=== PATIENT | male | born 1960 | race Caucasian/White ===

== ENCOUNTER → 2021-10-17 15:43 | Outpatient (CLI) | payer OTHER, SELFPAY ==
--- NOTE | ~2021-10-17 | CT_ITS ---
CT lung screening DATE: 10/17/2021 16:02 INDICATION: Personal history of nicotine dependence TECHNIQUE: Noncontrast CT images through the chest. Automated exposure control and iterative reconstr uction were utilized. Exam dose: 193.44 mGy-cm total exam DLP. COMPARISON: 07/06/2017 CT lung screening examinations FINDINGS: Calcified right upper lobe pulmonary granuloma and calcified right paratracheal and hilar n odes, calcified splenic granulomas, consistent with old granulomatous disease. Mild emphysema. There is a new right upper lobe 8 x 13 mm nonsolid nodule since 07/06/2017. One year annual follow-up is recommended. Adenocarcinoma of the lung is not excluded. The [facility] radiology recommends one y ear follow-up in this setting due to the relatively indolent nature of such lesions and no significan t change in partially 100% long-term survival rate at 1 year follow-up. Normal heart size. Coronary artery calcification. No pericardial or pleural effusion. Normal caliber of the thoracic aorta. No hilar or mediastinal mass lesion or lymphadenopathy. Small sliding hiatal hernia. Fat-containing left foramen of Bochdalek hernia. Normal morphology of the adrenal glands. IMPRESSION: BI-RADS Category 2: Benign appearance or behavior; new 8 x 13 mm nonsolid nodule since . One-year LD CT lung follow-up is strongly recommended. Recommendation: [address] lung follow-up is strongly recommended due to presence of a new nonsolid 8 x 13 mm nodule in the right upper lobe Reviewed, dictated and finalized at [facility]. Reviewed, dictated and finalized at location [facility]. ING TRACER IMPRESSION: BI-RADS Category 2: Benign appearance or behavior; new 8 x 13 mm no nsolid nodule since 07/06/2017. One-year LD CT lung follow-up is strongly recom mended. Recommendation: [address] lung follow-up is strongly recommended due to pres ence of a new nonsolid 8 x 13 mm nodule in the right upper lobe
== END ==
PROVIDERS: PCP Family Medicine; Visit Provider Family Medicine
DX: Z87.891 Personal history of nicotine dependence (principal)
CPT/HCPCS: 71271

== ENCOUNTER 2022-10-19 06:48 | Outpatient (CLI) | payer OTHER, SELFPAY ==
--- NOTE | ~2022-10-19 | CT_ITS ---
EXAMINATION:CT lung screening DATE: 10/19/2022 07:38 INDICATION: Tobacco use. Smoker quit 2 years ago with 30 pack year history. TECHNIQUE: Computed tomography (CT) of the chest was performed without intravenous contrast. Automate d exposure control and iterative reconstruction technique were employed. The dose-length product (DLP ) was 196.02 mGy-cm. COMPARISON: Chest CT 10/17/2021 FINDINGS: There is mild emphysema. There is a small left posterior diaphragmatic hernia containing fa t. Calcified right lung nodules and calcified right hilar and mediastinal lymph nodes are consistent with old granulomatous disease. No pleural effusion. The heart size is normal. There are coronary art rox calcifications. No pericardial effusion. There is a moderate-sized sliding hiatal hernia. There i s diffuse hepatic steatosis. Calcifications in the spleen are consistent with old granulomatous disea se. There is an old healed left rib fracture. There is mild thoracic spondylosis. IMPRESSION: 1. Lung-RADS category 1: Negative. Continue annual screening with noncontrast low-dose chest CT in 12 months. Reviewed, dictated and finalized at location [facility]. RVISOR STRIPPING IMPRESSION: 1. Lung-RADS category 1: Negative. Continue annual screening with noncontrast l ow-dose chest CT in 12 months.
== END 2022-10-19 06:49 | disposition home or self-care (01) ==
PROVIDERS: PCP Family Medicine; Visit Provider Family Medicine
DX: Z12.2 Encounter for screening for malignant neoplasm of respiratory organs (principal); Z87.891 Personal history of nicotine dependence
CPT/HCPCS: 71271

== ENCOUNTER 2024-01-17 14:07 | Outpatient (CLI) | payer OTHER, SELFPAY ==
--- NOTE | ~2024-01-17 | XR_ITS ---
XR knee LT min 4V 01/17/2024 14:33 Indication: Left knee pain Procedure: 4 views left knee Comparison: 09/05/2016 Findings: There has been progression of tricompartment osteoarthritis, most severe in the medial comp artment. There is sclerotic lesion involving the medullary space of the distal aspect of the femur, c onsistent with osteonecrosis. No acute fracture or traumatic malalignment. No significant joint effus ion. There is atherosclerosis. Impression: 1: Progression of moderate-severe tricompartment osteoarthritis of the knee. 2: Probable osteonecrosis distal aspect of the femur. Reviewed, dictated and finalized at location [facility]. Impression: 1: Progression of moderate-severe tricompartment osteoarthritis of the knee. 2: Probable osteonecrosis distal aspect of the femur.
--- NOTE | ~2024-01-17 | CT_ITS ---
CT Scan of the Chest without Contrast: Clinical Indication: Lung cancer screening, nicotine dependence Technique: Contiguous sections were acquired throughout the chest without intravenous contrast. Dose reduction technique was used on this scan by utilizing automated exposure control and iterative recon struction technique. The dose-length product (DLP) was 152.40 mGy-cm. COMPARISON: 10/19/2022 Findings: There is no evidence of any significant mediastinal, hilar or axillary lymphadenopathy. Calcified pre carinal lymph nodes are present. Calcified right hilar lymph nodes are present. There are atheroscler otic calcifications of the aorta and coronary arteries. There is no evidence of pleural or pericardial effusion. Calcified right upper lobe granuloma present. Images through the upper abdomen reveal no abnormalities. Impression: Lung RADS 2: Benign appearance. 12 month follow-up screening CT advised. Reviewed, dictated and finalized at location . Impression: Lung RADS 2: Benign appearance. 12 month follow-up screening CT advised.
--- NOTE | ~2024-01-17 | XR_ITS ---
XR knee RT min 4V 01/17/2024 14:33 Indication: Right knee pain Procedure: 4 views right knee Comparison: No prior studies for comparison. Findings: There is tricompartment osteoarthritis with near complete loss of joint space in the medial compartment. Small joint effusion. Sclerotic lesion distal aspect of the femur at the metaphysis may represent enchondroma or osteonecrosis. No acute fracture or traumatic malalignment. Impression: 1: Tricompartment osteoarthritis, severe in the medial compartment. Reviewed, dictated and finalized at location [facility]. Impression: 1: Tricompartment osteoarthritis, severe in the medial compartment.
== END 2024-01-17 14:08 | disposition home or self-care (01) ==
LOC: ANHIMG 14:09
PROVIDERS: PCP Family Medicine; Visit Provider Family Medicine
DX: Z12.2 Encounter for screening for malignant neoplasm of respiratory organs (principal); Z87.891 Personal history of nicotine dependence; M17.0 Bilateral primary osteoarthritis of knee
CPT/HCPCS: 71271; 73564

== ENCOUNTER 2024-02-01 11:00 | Observation (INO) | payer OTHER, SELFPAY ==
[2024-02-01] VITALS (11 sets, daily range): BP systolic 147–236; BP diastolic 74–124; PULSE 86–113; RESP 16–20; TEMP 35.9–36.8; O2SAT 96–99
--- NOTE | ~2024-02-01 | CT_ITS ---
EXAMINATION: CT abdomen pelvis w con DATE: 02/01/2024 13:19 INDICATION: Vomiting blood TECHNIQUE: Computed tomography (CT) of the abdomen and pelvis was performed with 100 mL Omnipaque-350 intravenous contrast. Automated exposure control and iterative reconstruction technique were employe d. The dose-length product was 645.06 mGy-cm. COMPARISON: 12/13/18 FINDINGS: Lung bases are clear. Heart size is normal. No pericardial or pleural effusion. There is a small amou nt of fluid without evident soft tissue gas surrounding the distal esophagus and a small sliding-type hiatal hernia. There are also couple mildly prominent but still normal-sized likely reactive paraeso phageal lymph nodes. There is wall thickening at the distal esophagus as well as at the fundus of the stomach suggestive of focal gastritis and esophagitis. Diffuse hepatic steatosis. Gallbladder, panc reas, bilateral adrenal glands and kidneys are normal. Tiny splenic calcification consistent with old granulomatous disease. There are few scattered colonic diverticula without adjacent inflammatory str anding to suggest diverticulitis. Small bowel and appendix are normal. Bladder is normal. There are a couple chronic heterotopic ossicles in the deep right hemipelvis. No free intraperitoneal gas or flu id. No pathologically enlarged abdominal or pelvic lymphadenopathy. Mild lumbar levoscoliosis with se kandace spondylosis. IMPRESSION: 1. Small sliding-type hiatal hernia with wall thickening of the proximal stomach and distal esophagus suspicious for gastritis and distal esophagitis most likely related to peptic ulcer disease and refl ux. The small amount of mucus. Fluid surrounding the distal esophagus and hiatal hernia is likely micha ctive. Could not exclude a perforation however there is no evident extraluminal gas to more specifica lly suggest this. Differential for the wall thickening would also include malignancy and would recomm end follow-up endoscopy for further evaluation. Reviewed, dictated and finalized at location B. IMPRESSION: 1. Small sliding-type hiatal hernia with wall thickening of the proximal stomac h and distal esophagus suspicious for gastritis and distal esophagitis most lik melisa related to peptic ulcer disease and reflux. The small amount of mucus. Flui d surrounding the distal esophagus and hiatal hernia is likely reactive. Could not exclude a perforation however there is no evident extraluminal gas to more specifically suggest this. Differential for the wall thickening would also incl ude malignancy and would recommend follow-up endoscopy for further evaluation.
--- NOTE | ~2024-02-01 | XR_ITS ---
EXAMINATION: XR abdomen gastric tube insert DATE: 02/01/2024 14:33 INDICATION: Nasogastric tube placement. TECHNIQUE: An upright view of the abdomen was obtained. COMPARISON: CT abdomen and pelvis 02/01/2024 FINDINGS: The lower abdomen is excluded. There are no dilated loops of bowel. The nasogastric tube ti p is in the stomach. IMPRESSION: 1. Nasogastric tube tip in the stomach. Reviewed, dictated and finalized at location A.
--- NOTE | ~2024-02-01 | XR_ITS ---
EXAMINATION: XR chest 1V portable DATE: 02/01/2024 13:24 INDICATION: Cough. Hematemesis. TECHNIQUE: A single frontal view of the chest was obtained. COMPARISON: Chest 2 views 03/03/2010, CT abdomen and pelvis 02/01/2024 FINDINGS: A calcified right lung nodule and calcified right hilar and mediastinal lymph nodes are con sistent with old granulomatous disease. No pleural effusion or pneumothorax. The heart size is normal . IMPRESSION: 1. No acute cardiopulmonary disease. Reviewed, dictated and finalized at location A.
[2024-02-01 11:19] LABS: Basophils Percent Auto 0.4 % (0.2-1.2); Eosinophils Absolute Auto 0.1 K/mm3 (0-0.3); Eosinophils Percent Auto 1.6 % (0-4.4); Hematocrit 48.7 % (42.0-52.0); Hemoglobin 16.7 g/dL (14.0-18.0); Immature Granulocyte Absolute 0.04 K/mm3 (0.00-0.031); Immature Granulocyte Percent A 0.5 % (0-0.5); Lymphocytes Absolute Auto 1.41 K/mm3 (0.9-3.2); Mean Corpuscular HGB Conc 34.3 g/dl (32-36); Mean Corpuscular Hemoglobin 33.1 pg (26-34); Mean Corpuscular Volume 96.6 fl (80-100); Mean Platelet Volume 9.6 fl (7.4-10.4); Monocytes Absolute Auto 0.5 K/mm3 (0.1-0.6); Neutrophils Absolute Auto 5.3 K/mm3 (1.3-6.7); Neutrophils Percent Auto 71.5 % (45.5-73.1); Platelet Count Result 224 k/mm3 (150-375); Red Blood Count 5.04 M/mm3 (4.6-6.20); White Blood Count 7.4 K/mm3 (4.5-10.0)
[2024-02-01 11:26] LABS: Alanine Aminotransferase 65 U/L (6-50); Albumin Level 4.5 g/dL (3.5-5.1); Alkaline Phosphatase 91 U/L (38-126); Anion Gap 10 mmol/L (4-12); Aspartate Amino Transferase 100 U/L (17-59); Bilirubin,Total 1.4 mg/dL (0.2-1.3); Blood Urea Nitrogen 9 mg/dL (9-20); Calcium 9.2 mg/dL (8.4-10.2); Carbon Dioxide 23 mmol/L (22-30); Chloride 105 mmol/L (98-107); Estimated CRCL calculation 62 ml/min; Estimated Glomerular Filt Rate > 60; Glucose 198 mg/dL (65-110); Potassium 3.6 mmol/L (3.4-5.0); Sodium 138 mmol/L (137-145)
[2024-02-01 11:27] LABS: Partial Thromboplastin Time 28.5 Seconds (22.3-36.8)
--- NOTE | 2024-02-01 12:31 | PC.NURSE ---
Pt states has a history of some issues with alcohol in the past and has had some issues with increased stress with jail.
[2024-02-01] MEDS: SODIUM CHLORIDE 0.9% IV 1,000 ML 999 ML IV CONT (12:53)
[2024-02-01] MEDS: ONDANSETRON INJ 4 MG/2 ML VIAL IV PUSH (12:54)
[2024-02-01] MEDS: PANTOPRAZOLE SODIUM IV 40 MG VIAL 80 MG IV PUSH (12:54)
--- NOTE | 2024-02-01 14:30 | PC.NURSE ---
NG tube placed, removed roughly 15mls of clear fluid/mucus with pink tinge present.
--- NOTE | 2024-02-01 14:31 | ED.GENADULT ---
HPI - General Adult General Chief complaint: GI Bleed Stated complaint: vomiting blood Time Seen by Provider: 02/01/24 12:36 patient is 63-year-old gentleman who presents emergency department chief complaint of vomiting blood. Patient reports that he had some epigastric discomfort and has had 2 episodes of vomiting. The patient states the vomitus was a dark colored blood the patient reports no blood in his stool reports he is not on blood thinners reports no prior history of GI bleeding in the past Related Data Allergies Allergy/AdvReac Type Severity Reaction Status Date / Time No Known Allergies Allergy Verified 09/28/23 08:44 Review of Systems Review of Systems: A 10 system review of systems was completed on the patient and is negative except for what is stated in the HPI. Nursing and ancillary documentation was reviewed. [facility] Past Medical History Medical History (Updated 02/01/24 @ 21:30 by Kurtis Barragan MD) Alcohol induced acute pancreatitis Benign essential hypertension Chronic obstructive pulmonary disease Continuous chronic alcoholism Erectile dysfunction Hyperlipidemia Peptic ulcer Prediabetes Surgical History Surgical History (Updated 02/01/24 @ 14:52 by Marya Brizuela PA-C) History of colonoscopy with polypectomy (06/2013) Benign polyp, internal hemorrhoids, diverticulosis. Family History Family History Mother Patient's mother is in good health Father Family history of respiratory disorder, Onset Age: 67 Patient's father is , Onset Age: 67 Social History Social History (Updated 02/01/24 @ 14:57 by Marya Brizuela PA-C) Social History: Surrogate medical decision maker: Code status: Full code. Smoking packs per day: 1 Smoking cigarettes per day: 20.0 Smoking status: Former smoker Tobacco type: cigarettes Second hand tobacco smoke exposure: Yes Smoking end date: 09/20/15 Alcohol intake: current Substance use: never Substance use type: does not use Do You Feel Safe in your Home?: Yes Lack of Transportation: No Lack of Food: Never True Current Housing: I Have Housing Concerned About Future Housing: YES Difficulty Paying Gas/Electric Bills: No Difficulty Paying for Meds: No Currently Unemployed: No Education: Trade/Vocational Certificate Difficulty w/ Childcare or Family Care: No Living arrangements: alone Occupation/Education: retired Spiritual care concerns: No Agree to blood products: Yes Exam Narrative: GENERAL: Well-appearing, well-nourished, and in no acute distress. HEAD: Normocephalic, atraumatic. EYES: PERRLA and EOMI. ENT: Nares clear, no rhinorrhea or epistaxis. Mucous membranes moist. NECK: Supple. CHEST: Clear to auscultation. No respiratory distress. HEART: Regular rate and rhythm. No murmur heard. Normal peripheral pulses. ABDOMEN: Soft, mild tenderness to palpation in the epigastric region, nondistended, normal active bowel sounds. : Guaiac-negative stool EXTREMITIES: Normal range of motion. No edema. SKIN: Warm, dry, no rash. NEURO: No focal deficits. Alert and oriented x3. PSYCH: Normal mood and affect. Course Vital Signs Vital signs: Vital Signs Temperature 36.7 C 02/01/24 11:03 Pulse Rate 112 H 02/01/24 11:03 Respiratory Rate 20 02/01/24 11:03 Blood Pressure 226/124 H 02/01/24 11:03 Pulse Oximetry 99 02/01/24 11:03 Oxygen Delivery Room Air 02/01/24 11:03 Temperature 36.8 C 02/01/24 20:17 Pulse Rate 113 H 02/01/24 20:17 Respiratory Rate 18 02/01/24 20:17 Blood Pressure 179/93 H 02/01/24 20:17 Pulse Oximetry 98 02/01/24 20:17 Oxygen Delivery Room Air 02/01/24 11:03 Medical Decision Making [facility] Narrative Medical decision making narrative: differential diagnosis includes upper GI bleed, lower GI bleed, gastritis, patient given 80 mg of IV
--- NOTE | 2024-02-01 14:50 | PM.IMHP ---
H&P: HPI History of Present Illness Date/Time: 02/01/24 16:00 Chief Complaint: Abdominal pain and vomiting blood. Narrative: This is a pleasant 63-year-old male with history of gastroesophageal reflux disease, peptic ulcer, daily alcohol use, pancreatitis, hepatic steatosis, hypertension, and dyslipidemia who presented to the emergency department via private vehicle from home for evaluation of abdominal pain and vomiting blood. The patient provides the following history. The last several weeks he has noticed an increase in GERD symptoms and this morning not long after he got up he developed a significant burning pain in the epigastric region radiating into the chest associated with nausea. He had 2 episodes of dark bloody emesis thereafter. He has had no further episodes of emesis since arrival to the hospital any reports feeling a bit better at this time. He takes equate Arthritis daily but he is unclear if it is ibuprofen or acetaminophen. He takes [place] occasionally for his GERD symptoms. He drinks 1 cup of coffee and 1 soda a day. He has a couple of cocktails most nights with his last drink being on Wednesday. He denies signs and symptoms of alcohol withdrawal. He has not had any recent change in stressors. Weight has remained stable. He also denies syncope, near syncope, chest pain, pleuritic pain, shortness of breath, melena, and hematochezia. In the ED: Blood pressure has been as high as 226/124. He is tachycardic in the upper 90s to low 100s. Labs were significant for a hemoglobin of 16.7, hematocrit 48.7%, INR 1.0, sodium 138, potassium 3.6, BUN 9, creatinine 1.10, glucose 198, total bili 4, AST 100, ALT 65, alkaline phosphatase 91, total protein 8.0, albumin 4.5. CT of the abdomen and pelvis showed small sliding type hiatal hernia with findings suspicious for gastritis and esophagitis. He was given 80 mg IV pantoprazole, 4 mg ondansetron, and 10 mg hydralazine and he is being admitted in this setting for close monitoring and GI consultation. Review of Systems Review of Systems: 12 systems were reviewed and are negative except for as per HPI. [facility] Past Medical History Medical History (Updated 02/01/24 @ 23:04 by Marya Brizuela PA-C) Alcohol induced acute pancreatitis Benign essential hypertension Chronic obstructive pulmonary disease Daily consumption of alcohol Erectile dysfunction Hyperlipidemia Peptic ulcer Prediabetes Surgical History Surgical History History of colonoscopy with polypectomy (06/2013) Benign polyp, internal hemorrhoids, diverticulosis. Family History Family History Mother Patient's mother is in good health Father Family history of respiratory disorder, Onset Age: 67 Patient's father is , Onset Age: 67 Social History Social History (Updated 02/01/24 @ 23:03 by Marya Brizuela PA-C) Social History: Surrogate medical decision maker: Yaakov Leblanc, son. Code status: Full code. Smoking packs per day: 1 Smoking cigarettes per day: 20.0 Smoking status: Former smoker Tobacco type: cigarettes Second hand tobacco smoke exposure: Yes Smoking end date: 09/20/15 Alcohol intake: current Alcohol use details: Drinks a couple of cocktails most days of the week. Substance use: never Substance use type: does not use Do You Feel Safe in your Home?: Yes Lack of Transportation: No Lack of Food: Never True Current Housing: I Have Housing Concerned About Future Housing: YES Difficulty Paying Gas/Electric Bills: No Difficulty Paying for Meds: No Currently Unemployed: No Education: Trade/Vocational Certificate Difficulty w/ Childcare or Family Care: No Living arrangements: alone Occupation/Education: retired Spiritual care concerns: No Agree to blood products: Yes Meds Home Medications and Allergies Home M
[2024-02-01] MEDS: hydrALAZINE HCL 20 MG/ML VIAL 10 MG IV PUSH (15:21)
[2024-02-01] MEDS: SODIUM CHLORIDE 0.9% IV 1,000 ML 125 ML IV CONT ×2 (15:43→21:49)
[2024-02-01 15:45] LABS: Hematocrit 43.6 % (42.0-52.0); Hemoglobin 14.9 g/dL (14.0-18.0)
[2024-02-01 21:16] LABS: Hematocrit 41.3 % (42.0-52.0); Hemoglobin 13.9 g/dL (14.0-18.0)
[2024-02-01] MEDS: ACETAMINOPHEN 325 MG TABLET 650 MG PO (21:50)
[2024-02-01] MEDS: PANTOPRAZOLE SODIUM IV 40 MG VIAL IV PUSH (21:50)
[2024-02-01] MEDS: LORazepam INJ (*CRX) 2 MG/ML VIAL 0.5 MG IV PUSH (21:51)
[2024-02-01 22:34] LABS: Hemoglobin A1C 5.6 % (<5.7)
[2024-02-02] VITALS (16 sets, daily range): BP systolic 133–180; BP diastolic 74–90; PULSE 68–88; RESP 18–28; TEMP 36.2–36.7; O2SAT 97–100
[2024-02-02] MEDS: THIAMINE HCL 200 MG/2 ML VIAL 100 MG IV PUSH (00:03)
[2024-02-02 04:20] LABS: Hematocrit 37.2 % (42.0-52.0); Hemoglobin 12.6 g/dL (14.0-18.0); Mean Corpuscular HGB Conc 33.9 g/dl (32-36); Mean Corpuscular Volume 97.4 fl (80-100); Platelet Count Result 164 k/mm3 (150-375); Red Blood Count 3.82 M/mm3 (4.6-6.20); Red Cell Distribution Width 13.1 % (11.5-14.5); White Blood Count 7.8 K/mm3 (4.5-10.0)
[2024-02-02 04:33] LABS: Alanine Aminotransferase 50 U/L (6-50); Albumin Level 3.3 g/dL (3.5-5.1); Alkaline Phosphatase 54 U/L (38-126); Anion Gap 7 mmol/L (4-12); Aspartate Amino Transferase 76 U/L (17-59); Bilirubin,Total 1.2 mg/dL (0.2-1.3); Blood Urea Nitrogen 10 mg/dL (9-20); Calcium 8.1 mg/dL (8.4-10.2); Carbon Dioxide 21 mmol/L (22-30); Chloride 109 mmol/L (98-107); Estimated CRCL calculation 83 ml/min; Estimated Glomerular Filt Rate > 60; Glucose 99 mg/dL (65-110); Magnesium 1.6 mg/dL (1.6-2.3); Potassium 3.4 mmol/L (3.4-5.0); Sodium 137 mmol/L (137-145)
[2024-02-02 07:32] LABS: Hematocrit 38.4 % (42.0-52.0)
[2024-02-02] MEDS: METOPROLOL SUCCINATE EXT REL 100 MG TABCR PO (08:32)
[2024-02-02] MEDS: PANTOPRAZOLE SODIUM IV 40 MG VIAL IV PUSH (08:33)
[2024-02-02] MEDS: SODIUM CHLORIDE 0.9% IV 1,000 ML 100 ML IV CONT (08:33)
[2024-02-02] MEDS: lisinopriL 10 MG TABLET PO (08:33)
[2024-02-02] MEDS: LACTATED RINGERS 1,000 ML 150 ML IV CONT (10:26)
--- NOTE | 2024-02-02 10:49 | WPDANESEPPF ---
Anes - Initial Pre Proc Eval Procedure: Operation Date: 02/02/24 14:00 Proposed Procedures p Esophagogastroduodenoscopy - Khurram Ramsey MD Date/Time: 02/02/24 10:49 Surgeon: Melissa David MD Pre Op Diagnosis: epigastric pain,gastritis Patient Data Age: 63 Gender: M Height: 1.75 m Weight: 90.1 kg Last Vital Signs Temp 97.2 F L 02/02/24 10:24 Pulse 75 02/02/24 10:24 Resp 18 02/02/24 10:24 BP 167/86 H 02/02/24 10:24 Pulse Ox 99 02/02/24 10:24 O2 Del Method Room Air 02/02/24 10:24 Allergies Allergy/AdvReac Type Severity Reaction Status Date / Time No Known Allergies Allergy Verified 09/28/23 08:44 Home Medications Medication Instructions Recorded Confirmed Type sildenafil 100 mg tablet 100 mg PO DAILY PRN sexual 07/10/21 02/01/24 Rx activity #6 tabs atorvastatin 10 mg tablet 10 mg PO DAILY #90 tabs 09/28/23 02/01/24 Rx fenofibrate micronized 200 mg 200 mg PO DAILY #90 caps 09/28/23 02/01/24 Rx capsule lisinopril 10 mg tablet 10 mg PO DAILY #90 tabs 09/28/23 02/01/24 Rx metoprolol succinate 100 mg 100 mg PO DAILY #90 tabs 09/28/23 02/01/24 Rx tablet,extended release 24 hr Laboratory Tests 02/01/24 02/01/24 02/01/24 11:10 15:35 21:07 WBC 7.4 K/mm3 (4.5-10.0) RBC 5.04 M/mm3 (4.6-6.20) Hgb 16.7 g/dL 14.9 g/dL 13.9 L g/dL (14.0-18.0) (14.0-18.0) (14.0-18.0) Hct 48.7 % 43.6 % 41.3 L % (42.0-52.0) (42.0-52.0) (42.0-52.0) MCV 96.6 fl (80-100) MCH 33.1 pg (26-34) MCHC 34.3 g/dl (32-36) RDW 13.0 % (11.5-14.5) Plt Count 224 k/mm3 (150-375) MPV 9.6 fl (7.4-10.4) Immature Gran % (Auto) 0.5 % (0-0.5) Neut % (Auto) 71.5 % (45.5-73.1) Lymph % (Auto) 19.0 % (18.3-44.2) [place] % (Auto) 7.0 % (2.6-8.5) Eos % (Auto) 1.6 % (0-4.4) Baso % (Auto) 0.4 % (0.2-1.2) Lymph # (Auto) 1.41 K/mm3 (0.9-3.2) [place] # (Auto) 0.5 K/mm3 (0.1-0.6) Eos # (Auto) 0.1 K/mm3 (0-0.3) Baso # (Auto) 0.0 K/mm3 (0.0-0.1) Abs Immat Gran (auto) 0.04 H K/mm3 (0.00-0.031) Absolute Neuts (auto) 5.3 K/mm3 (1.3-6.7) Absolute Nucleated RBC 0.000 K/mm3 (0.0-0.012) Nucleated RBC % 0.0 % (0.0-0.2) PT 14.0 Seconds (11.1-14.7) INR 1.0 APTT 28.5 Seconds (22.3-36.8) Sodium 138 mmol/L (137-145) Potassium 3.6 mmol/L (3.4-5.0) Chloride 105 mmol/L (98-107) Carbon Dioxide 23 mmol/L (22-30) Anion Gap 10 mmol/L (4-12) BUN 9 mg/dL (9-20) Creatinine 1.10 mg/dL (0.7-1.3) Estim Creat Clear Calc 62 ml/min Estimated GFR > 60 (59 - ) Glucose 198 H mg/dL (65-110) Hemoglobin A1c 5.6 % (<5.7) Calcium 9.2 mg/dL (8.4-10.2) Magnesium Total Bilirubin 1.4 H mg/dL (0.2-1.3) AST 100 H U/L (17-59) ALT 65 H U/L (6-50) Alkaline Phosphatase 91 U/L (38-126) Total Protein 8.0 g/dL (6.3-8.2) Albumin 4.5 g/dL (3.5-5.1) Blood Type O Positive Antibody Screen Negative 02/02/24 02/02/24 03:39 07:27 WBC 7.8 K/mm3 (4.5-10.0) RBC 3.82 L M/mm3 (4.6-6.20) Hgb 12.6 L g/dL 13.0 L g/dL (14.0-18.0) (14.0-18.0) Hct 37.2 L % 38.4 L % (42.0-52.0) (42.0-52.0) MCV 97.4 fl (80-100) MCH 33.0 pg (26-34) MCHC 33.9 g/dl (32-36) RDW 13.1 % (11.5-14.5) Plt Count 164 k/mm3 (150-375) MPV 10.0 fl (7.4-10.4) Immature Gran % (Auto) Neut % (Auto) Lymph % (Auto) [place] % (Auto) Eos % (Auto) Baso % (Auto) Lymph # (Auto) [place] # (Auto) Eos
--- NOTE | 2024-02-02 11:11 | WPDGICN ---
Assessment and Plan Assessment and plan (1) Hematemesis: Code(s): K92.0 - Hematemesis Status: Acute Assessment and Plan: started on iv protonix will proceed with urgent EGD, probably esophagitis/ulcers, less likely varices but he also drinks alcohol (2) Epigastric pain: Code(s): R10.13 - Epigastric pain Status: Acute Assessment and Plan: probably PUD also nsaid's use (3) Abnormal CT of the abdomen: Code(s): R93.5 - Abnormal findings on diagnostic imaging of other abdominal regions, including retroperitoneum Status: Acute Assessment and Plan: esophagitis egd to assess (4) Alcohol dependence, continuous: Code(s): F10.20 - Alcohol dependence, uncomplicated Status: Acute Assessment and Plan: here also with elevated liver enzymes, probably from alcohol use monitor ciwa protocol, thiamine (5) Transaminitis: Code(s): R74.01 - Elevation of levels of liver transaminase levels Status: Acute (6) Hypertensive urgency: Code(s): I16.0 - Hypertensive urgency Status: Acute Assessment and Plan: on meds (7) NSAID long-term use: Code(s): 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 is a 63 year old male with history of gastroesophageal reflux disease, daily alcohol use (couple of cocktails most nights), pancreatitis, hepatic steatosis, hypertension, and dyslipidemia who presented to the emergency department her for new onset of abdominal pain and vomiting blood. Last few weeks with more GERD symptoms, day of admission with significant burning pain in the epigastric region radiating into the chest associated with nausea then followed by coffee ground emesis x2. He takes OTC Arthritis pain meds, Yaneli-Dennis occasionally for his GERD symptoms. ER with hemoglobin of 16.7 after fluids down to 13, INR 1.0, sodium 138, potassium 3.6, BUN 9, creatinine 1.10, glucose 198, total bili 1.4, AST 100, ALT 65, alkaline phosphatase 91, albumin 4.5. CT of the abdomen and pelvis showed small sliding type hiatal hernia with findings suspicious for gastritis and esophagitis. Given iv protonix, ciwa protocol and admitted to hospital. Review of Systems Constitutional: Constitutional: Denies headache(s) Eyes: Eyes: Denies blurry vision ENT: Reports Normal hearing present Cardiovascular: Cardiovascular: Denies chest pain and Denies dyspnea Respiratory: Respiratory: Denies dyspnea Gastrointestinal: Gastrointestinal: Reports abdominal pain and Reports hematemesis Genitourinary: Genitourinary: Denies dysuria Musculoskeletal: Musculoskeletal: Reports arthralgias Integumentary/Breasts: Skin/Breast: Denies dry skin Neurologic: Reports Normal hearing present and Denies headache(s) Psychiatric: Psychiatric: Denies behavioral changes Allergic/Immunologic: Allergic/Immunologic: Denies urticaria PMFSH Past Medical History Medical History (Updated 02/02/24 @ 12:46 by Khurram Ramsey MD) Alcohol induced acute pancreatitis Benign essential hypertension Chronic obstructive pulmonary disease Daily consumption of alcohol Erectile dysfunction Hyperlipidemia NSAID long-term use Peptic ulcer Prediabetes Surgical History Surgical History History of colonoscopy with polypectomy (06/2013) Benign polyp, internal hemorrhoids, diverticulosis. Family History Family History Mother Patient's mother is in good health Father Family history of respiratory disorder, Onset Age: 67 Patient's father is , Onset Age: 67 Social History Social History (Updated 02/01/24 @ 23:03 by Marya Brizuela PA-C) Social Hi
--- NOTE | 2024-02-02 16:49 | PM.DS ---
DS: Admitting Diagnosis Discharge Date 02/02/2024 Admitting Diagnosis Abdominal pain and vomiting blood. DS: Discharge Diagnosis Discharge Diagnosis (1) Hematemesis: Code(s): K92.0 - Hematemesis Status: Acute (2) Transaminitis: Code(s): R74.01 - Elevation of levels of liver transaminase levels Status: Acute Assessment and Plan: watching in hospital (3) Abnormal CT of the abdomen: Code(s): R93.5 - Abnormal findings on diagnostic imaging of other abdominal regions, including retroperitoneum Status: Acute Assessment and Plan: Suspect underlying esophagitis and gastritis with the possibility of peptic ulcers well. CT scan shows some fluid surrounding the distal esophagus and hilar hernia which is likely reactive however radiologist could not exclude a perforation though no evident extraluminal gas noted and this seems unlikely by history and exam findings. Egd showed gastritis. Pt tolerating diet prior to DC. Pt to have no alcohol no NSAIDS rpt EGD in 4 weeks Pt to take calfrate and protonix meanwhile Ok to DC (4) Daily consumption of alcohol: Code(s): Z78.9 - Other specified health status Status: Acute Assessment and Plan: abstinence adviced (5) Hypertensive urgency: Code(s): I16.0 - Hypertensive urgency Status: Acute Assessment and Plan: controlled now (6) Prediabetes: Code(s): R73.03 - Prediabetes Status: Acute Assessment and Plan: cut back on sugars foods (7) Hyperlipidemia: Qualifiers: Hyperlipidemia type: mixed hyperlipidemia Qualified Code(s): E78.2 - Mixed hyperlipidemia Code(s): E78.5 - Hyperlipidemia, unspecified Status: Acute Assessment and Plan: continue with statin DS: Summary Hospital Course Hospital Course: The patient presented to the emergency department for evaluation of epigastric discomfort and bloody emesis x2, Suspect underlying esophagitis and gastritis with the possibility of peptic ulcers well. CT scan shows some fluid surrounding the distal esophagus and hilar hernia which is likely reactive however radiologist could not exclude a perforation though no evident extraluminal gas noted and this seems unlikely by history and exam findings. Egd showed gastritis. Pt to have no alcohol no NSAIDS rpt EGD in 4 weeks Pt to take calfrate and protonix meanwhile ok to DC Time Spent with Patient Time attestation: Total time spent providing and/or coordinating discharge services:40 minutes on day of DC Exam Narrative: General: Well-developed, nontoxic-appearing male Respiratory: Lungs are clear to auscultation bilaterally. Cardiovascular: Regular rate and rhythm with S1-S2. Gastrointestinal: Abdomen is soft, nontender, and nondistended with positive bowel sounds. Skin: Warm and dry. No rash or lesions on limited exam. Extremities: No cyanosis, clubbing, or edema. Radial and pedal pulses intact. Neurological: Alert. Cranial nerves 2-12 are grossly intact. No gross focal deficits to casual conversation. Psychiatric: Pleasant and cooperative with normal mood and affect. Judgment and insight intact. DS: Data Data Completed and Pending Pending studies at discharge: Pending at discharge 02/02/24 11:19 Surgical [PTH] Routine Labs on day of discharge: Labs from last 24 hours 02/02/24 02/02/24 02/01/24 07:27 03:39 21:07 WBC 7.8 RBC 3.82 L Hgb 13.0 L 12.6 L 13.9 L Hct 38.4 L 37.2 L 41.3 L MCV 97.4 MCH 33.0 MCHC 33.9 RDW 13.1 Plt Count 164 MPV 10.0 Sodium 137 Potassium 3.4 Chloride 109 H Carbon Dioxide 21 L Anion Gap 7 BUN 10 Creatinine 0.80 Estim Creat Clear Calc 83 Estimated GFR > 60 Glucose 99 Hemoglobin A1c 5.6 Calcium 8.1 L Magnesium 1.6 Total Bilirubin 1.2 AST 76 H ALT 50 Alkaline Phosphatase 54 Total Protein 6.0 L A
== END 2024-02-02 17:34 | disposition home or self-care (01) ==
LOC: ANHED 13:54 → ANHIMU 17:53
PROVIDERS: Emergency Medicine; Internal Medicine Gastroenterology; Physician Assistant; Admitting Provider General Practice; Emergency Provider Emergency Medicine; PCP Family Medicine; Visit Provider Family Medicine
PROC: 0DJ08ZZ Inspection of Upper Intestinal Tract, Via Natural or Artificial Opening Endoscopic (ICD-10-PCS; CPT 43235; principal; 2024-02-02 14:00)
DX: K22.10 Ulcer of esophagus without bleeding (principal); K44.9 Diaphragmatic hernia without obstruction or gangrene; K29.70 Gastritis, unspecified, without bleeding; K21.00 Gastro-esophageal reflux disease with esophagitis, without bleeding; I16.0 Hypertensive urgency; R74.01 Elevation of levels of liver transaminase levels; R93.5 Abnormal findings on diagnostic imaging of other abdominal regions, including retroperitoneum; E78.2 Mixed hyperlipidemia; I10 Essential (primary) hypertension; J44.9 Chronic obstructive pulmonary disease, unspecified; F10.20 Alcohol dependence, uncomplicated; R73.03 Prediabetes; K21.9 Gastro-esophageal reflux disease without esophagitis; K76.0 Fatty (change of) liver, not elsewhere classified; Z87.11 Personal history of peptic ulcer disease; Z87.891 Personal history of nicotine dependence; Z79.1 Long term (current) use of non-steroidal anti-inflammatories (NSAID)
CPT/HCPCS: 43239; 36415; 71045; 74177; 80053; 83036; 83735; 85014; 85018; 85025; 85027; 85610; 85730; 86850; 86900; 86901; 88305; 88312; 96361; 96374; 96375; 96376; 99285; A9270; C9113; G0378; J0360; J2060; J2405; J2704; J3411; J7030; J7120; Q9967

== ENCOUNTER 2024-05-24 01:49 | Day surgery (SDC) | payer OTHER, SELFPAY ==
[2024-05-03 14:23] VITALS: BMI 28.5
[2024-05-24 10:02] VITALS: BP 152/61; PULSE 58; RESP 20; TEMP 36.1; O2SAT 100
[2024-05-24] MEDS: LACTATED RINGERS 1,000 ML 150 ML IV CONT (10:10)
--- NOTE | 2024-05-24 10:24 | WPDANESEPPF ---
Anes - Initial Pre Proc Eval Procedure: Operation Date: 05/24/24 11:00 Proposed Procedures p Esophagogastroduodenoscopy - Khurram Ramsey MD Date/Time: 05/24/24 10:24 Surgeon: Khurram Ramsey MD Pre Op Diagnosis: GERD, Gastritis,Diaphragmatic hernia,reflux Patient Data Age: 63 Gender: M Height: 1.8 m Weight: 92.5 kg Last Vital Signs Temp 97 F L 05/24/24 10:02 Pulse 58 L 05/24/24 10:02 Resp 20 05/24/24 10:02 BP 152/61 H 05/24/24 10:02 Pulse Ox 100 05/24/24 10:02 O2 Del Method Room Air 05/24/24 10:02 Allergies Allergy/AdvReac Type Severity Reaction Status Date / Time No Known Allergies Allergy Verified 05/24/24 10:00 Home Medications Medication Instructions Recorded Confirmed Type sildenafil 100 mg tablet 100 mg PO DAILY PRN sexual 07/10/21 05/03/24 Rx activity #6 tabs atorvastatin 10 mg tablet 10 mg PO DAILY #90 tabs 09/28/23 05/03/24 Rx fenofibrate micronized 200 mg 200 mg PO DAILY #90 caps 09/28/23 05/03/24 Rx capsule lisinopril 10 mg tablet 10 mg PO DAILY #90 tabs 09/28/23 05/03/24 Rx metoprolol succinate 100 mg 100 mg PO DAILY #90 tabs 09/28/23 05/03/24 Rx tablet,extended release 24 hr Patient hx anesthesia problems: none Family hx anesthesia problems: none Results Review: All pre-operative results and documents have been reviewed as part of the pre-operative evaluation. [facility] Past Medical History Medical History Alcohol induced acute pancreatitis Benign essential hypertension Chronic obstructive pulmonary disease Daily consumption of alcohol Erectile dysfunction Hyperlipidemia NSAID long-term use Peptic ulcer Prediabetes Surgical History Surgical History History of colonoscopy with polypectomy (06/2013) Benign polyp, internal hemorrhoids, diverticulosis. Family History Family History Mother Patient's mother is in good health Father Family history of respiratory disorder, Onset Age: 67 Patient's father is , Onset Age: 67 Social History Social History Social History: Surrogate medical decision maker: Yaakov Leblanc, [employer]. Code status: Full code. Smoking packs per day: 1 Smoking cigarettes per day: 20.0 Smoking status: Former smoker Tobacco type: cigarettes Second hand tobacco smoke exposure: Yes Smoking end date: 09/20/15 Alcohol intake: current Drinks per week: 7 Alcohol use details: Drinks a couple of cocktails most days of the week. Substance use: never Substance use type: marijuana Other substance usage details: once a month Do You Feel Safe in your Home?: Yes Lack of Transportation: No Lack of Food: Never True Current Housing: I Have Housing Concerned About Future Housing: YES Difficulty Paying Gas/Electric Bills: No Difficulty Paying for Meds: No Currently Unemployed: No Education: Trade/Vocational Certificate Difficulty w/ Childcare or Family Care: No Living arrangements: alone Occupation/Education: retired Spiritual care concerns: No Agree to blood products: Yes Anes - Eval Final PreProcedure Day of Procedure 05/24/24 10:24 Patient weight: obese Heart: regular rate and rhythm Lungs: clear to auscultation Airway: Mallampati scale class II Neurological: alert and oriented Last oral intake: >/= 8 hours ASA classification: III Emergent: no Anesthetic plan: proceed Anesthesia type and monitoring: general GIVS and standard monitoring Results Review: All pre-operative results and documents have been reviewed as part of the pre-operative evaluation. Informed Consent: The patient's anesthetic plan and its attendant risks and benefits were discussed with the patient/family/POA. Questions were solicited and answer
--- NOTE | 2024-05-24 10:50 | PM.HPGS ---
History of Present Illness History of Present Illness Consent: Risks, benefits, and alternatives have been discussed and questions answered. Patient agrees to proceed with procedure. Chief complaint: GERD, Gastritis,Diaphragmatic hernia,reflux Narrative: Yaakov Leblanc Jr. is a 63 year old male here for egd, hospitalized with grade III esophagitis 01/2024, better now, not longer using ppi Review of Systems Review of Systems: All systems reviewed & are unremarkable except as noted in HPI and below PMFSH Past Medical History Medical History Alcohol induced acute pancreatitis Benign essential hypertension Chronic obstructive pulmonary disease Daily consumption of alcohol Erectile dysfunction Hyperlipidemia NSAID long-term use Peptic ulcer Prediabetes Surgical History Surgical History History of colonoscopy with polypectomy (06/2013) Benign polyp, internal hemorrhoids, diverticulosis. Family History Family History Mother Patient's mother is in good health Father Family history of respiratory disorder, Onset Age: 67 Patient's father is , Onset Age: 67 Social History Social History Social History: Surrogate medical decision maker: Yaakov Leblanc, son. Code status: Full code. Smoking packs per day: 1 Smoking cigarettes per day: 20.0 Smoking status: Former smoker Tobacco type: cigarettes Second hand tobacco smoke exposure: Yes Smoking end date: 09/20/15 Alcohol intake: current Drinks per week: 7 Alcohol use details: Drinks a couple of cocktails most days of the week. Substance use: never Substance use type: marijuana Other substance usage details: once a month Do You Feel Safe in your Home?: Yes Lack of Transportation: No Lack of Food: Never True Current Housing: I Have Housing Concerned About Future Housing: YES Difficulty Paying Gas/Electric Bills: No Difficulty Paying for Meds: No Currently Unemployed: No Education: Trade/Vocational Certificate Difficulty w/ Childcare or Family Care: No Living arrangements: alone Occupation/Education: retired Spiritual care concerns: No Agree to blood products: Yes Meds Home Medications and Allergies Home Medications Medication Instructions Recorded Confirmed Type sildenafil 100 mg tablet 100 mg PO DAILY PRN sexual 07/10/21 05/03/24 Rx activity #6 tabs atorvastatin 10 mg tablet 10 mg PO DAILY #90 tabs 09/28/23 05/03/24 Rx fenofibrate micronized 200 mg 200 mg PO DAILY #90 caps 09/28/23 05/03/24 Rx capsule lisinopril 10 mg tablet 10 mg PO DAILY #90 tabs 09/28/23 05/03/24 Rx metoprolol succinate 100 mg 100 mg PO DAILY #90 tabs 09/28/23 05/03/24 Rx tablet,extended release 24 hr Allergies Allergy/AdvReac Type Severity Reaction Status Date / Time No Known Allergies Allergy Verified 05/24/24 10:00 Vital Signs Vital Signs - 24 hr 05/24/24 10:02 Temperature 97 F L Pulse Rate 58 L Respiratory Rate 20 Blood Pressure 152/61 H Pulse Oximetry 100 Oxygen Delivery Room Air Exam Const: General: comfortable and no acute distress HENMT: Face/Nose/Sinus: Normal nares present Eyes: General: appearance normal, both eyes and all related structures Neck: Neck: no JVD Resp: Auscultation: clear to auscultation bilaterally Cardio: Rate: regular rate Rhythm: regular rhythm GI: Inspection: non-distended GI Palp: Yes Soft to palpation Skin: General skin exam: normal color Neuro: General: gait normal Speech: normal speech Extrem: General: normal to inspection Psych: Mental Status: mental status grossly normal Assessment and Plan Assessment and plan (1) GERD (gastroesophageal reflux disease): Code(s): K21.9 - Gastro-esophageal reflux
[2024-05-24] MEDS: BENZOCAINE (*SP) 60 ML SPRAY CAN (HURRICAINE) 1 SPRAY MUCOUS MEM (10:55)
[2024-05-24 11:04] VITALS: BP 133/82; PULSE 66; RESP 26; O2SAT 99
[2024-05-24 11:14] VITALS: BP 130/75; PULSE 72; RESP 20; O2SAT 98
[2024-05-24 11:24] VITALS: BP 136/70; PULSE 78; RESP 18; O2SAT 99
== END 2024-05-24 11:38 | disposition home or self-care (01) ==
PROVIDERS: PCP Family Medicine; Referring Provider Internal Medicine Gastroenterology; Visit Provider Internal Medicine Gastroenterology
PROC: 0DJ08ZZ Inspection of Upper Intestinal Tract, Via Natural or Artificial Opening Endoscopic (ICD-10-PCS; CPT 43235; principal; 2024-05-24 11:00)
DX: K21.00 Gastro-esophageal reflux disease with esophagitis, without bleeding (principal); K22.2 Esophageal obstruction; K44.9 Diaphragmatic hernia without obstruction or gangrene; I10 Essential (primary) hypertension; E78.5 Hyperlipidemia, unspecified; J44.9 Chronic obstructive pulmonary disease, unspecified; Z87.891 Personal history of nicotine dependence; F12.90 Cannabis use, unspecified, uncomplicated; E66.9 Obesity, unspecified; Z68.28 Body mass index [BMI] 28.0-28.9, adult
CPT/HCPCS: 43249; 36430; J2704; J7120

== ENCOUNTER 2024-12-01 10:09 | Outpatient (CLI) | payer OTHER, SELFPAY ==
--- NOTE | ~2024-12-01 | XR_ITS ---
Right Knee Technique: AP, lateral, and sunrise views were obtained. Clinical History: Osteoarthritis COMPARISON: 01/17/2024 Findings: No fracture or dislocation is seen. Stable medial compartment narrowing. Stable minimal ost eophyte formation. Stable benign-appearing sclerotic lesion of the distal femur. Soft tissues are unr emarkable. No joint effusion is seen. Impression: Mild degenerative change, as above. Stable benign-appearing sclerotic lesion of the distal femur. Reviewed, dictated and finalized at location M. Impression: Mild degenerative change, as above. Stable benign-appearing sclerotic lesion of the distal femur.
--- NOTE | ~2024-12-01 | XR_ITS ---
Left Knee Technique: AP, lateral, and sunrise views were obtained. Clinical History: Osteoarthritis Findings: No fracture or dislocation is seen. There is mild medial compartment narrowing. There is mi nimal osteophyte formation. Large enchondroma versus bone infarct present in the distal femur. Soft t issues are unremarkable. No joint effusion is seen. 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 Mild degenerative change, as above. Reviewed, dictated and finalized at location M. 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 Mild degenerative change, as above.
== END 2024-12-01 10:10 | disposition home or self-care (01) ==
PROVIDERS: Visit Provider Orthopaedic Surgery
DX: M17.0 Bilateral primary osteoarthritis of knee (principal)
CPT/HCPCS: 73564

== ENCOUNTER 2025-04-16 11:18 | Outpatient (CLI) | payer OTHER, SELFPAY ==
--- NOTE | ~2025-04-16 | CT_ITS ---
CT Scan of the Chest without Contrast: Clinical Indication: Lung cancer screening, nicotine dependence Technique: Contiguous sections were acquired throughout the chest without intravenous contrast. Dose reduction technique was used on this scan by utilizing automated exposure control and iterative recon struction technique. The dose-length product (DLP) was 203.48 mGy-cm. COMPARISON: 01/17/2024 Findings: There is no evidence of any significant mediastinal, hilar or axillary lymphadenopathy. Calcified lym ph nodes are present in the mediastinum and right hilum.. There is no evidence of pleural or pericardial effusion. Calcified right upper lobe granuloma present. Lungs are otherwise clear. Images through the upper abdomen reveal no abnormalities. Impression: Lung RADS 1: Negative. 12 month follow-up screening CT advised. Reviewed, dictated and finalized at [facility]. Impression: Lung RADS 1: Negative. 12 month follow-up screening CT advised.
== END 2025-04-16 11:19 | disposition home or self-care (01) ==
LOC: MICIMG 11:20
PROVIDERS: PCP Nurse Practitioner Family; Visit Provider Nurse Practitioner Family
DX: Z12.2 Encounter for screening for malignant neoplasm of respiratory organs (principal); Z87.891 Personal history of nicotine dependence
CPT/HCPCS: 71271

== ENCOUNTER 2025-05-30 11:18 | Outpatient (CLI) | payer OTHER, SELFPAY ==
--- NOTE | ~2025-05-30 | XR_ITS ---
EXAMINATION: XR knee LT min 4V, 05/30/2025 11:55 CDT HISTORY: M25.562 - Pain in left knee COMPARISON: No comparisons available. Findings: Probable bone infarct distal femur, no fracture identified. Moderate tricompartmental degenerative changes with small effusion Soft tissues unremarkable. Impression: No acute fracture or malalignment. Reviewed, dictated and finalized at location A. Impression: No acute fracture or malalignment.
--- NOTE | ~2025-05-30 | XR_ITS ---
EXAMINATION: XR knee RT min 4V, 05/30/2025 11:55 CDT HISTORY: M17.11 - Unilateral primary osteoarthritis, right knee COMPARISON: No comparisons available. Findings: Probable bone infarct in the distal femur, no acute fracture identified Moderate tricompartmental degenerative changes. Soft tissues unremarkable. Impression: No acute fracture or malalignment. Reviewed, dictated and finalized at location A. Impression: No acute fracture or malalignment.
== END 2025-05-30 11:19 | disposition home or self-care (01) ==
PROVIDERS: PCP Nurse Practitioner Family; Visit Provider Orthopaedic Surgery
DX: M17.11 Unilateral primary osteoarthritis, right knee (principal); M25.562 Pain in left knee
CPT/HCPCS: 73564

== ENCOUNTER 2025-06-14 11:28 | Outpatient (CLI) | payer OTHER, SELFPAY ==
--- NOTE | 2025-06-14 11:43 | ECG_ITS ---
Test Date: 2025-06-14 11:55:08 Measurements Intervals [place] Rate: 60 P: 73 NE: 170 QRS: -56 QRSD: 91 T: 48 QT: 409 QTc: 412 Interpretive Statements SINUS RHYTHM LEFT ANTERIOR FASCICULAR BLOCK [QRS AXIS <= -45, QR IN I, RS IN II] No previous ECG available for comparison Electronically Signed On 06-14-2025 15:25:20 CDT by Oscar Funk M.D.
[2025-06-14 11:52] LABS: Hematocrit 44.5 % (42.0-52.0); Hemoglobin 14.5 g/dL (14.0-18.0)
[2025-06-14 12:07] LABS: Albumin Level 4.2 g/dL (3.5-5.1); Estimated Glomerular Filt Rate 59; Glucose 137 mg/dL (65-110)
[2025-06-14 12:18] LABS: Hemoglobin A1C 6.1 % (<5.7)
== END 2025-06-14 11:29 | disposition home or self-care (01) ==
LOC: ANHLAB 11:30
PROVIDERS: PCP Nurse Practitioner Family; Visit Provider Orthopaedic Surgery
DX: J44.9 Chronic obstructive pulmonary disease, unspecified (principal); Z79.899 Other long term (current) drug therapy; E11.9 Type 2 diabetes mellitus without complications; M17.11 Unilateral primary osteoarthritis, right knee; I10 Essential (primary) hypertension
CPT/HCPCS: 80307; 82040; 82565; 82947; 83036; 85014; 85018; 93005

== ENCOUNTER 2025-08-13 11:58 | Outpatient (CLI) | payer OTHER, SELFPAY ==
[2025-08-13 13:44] LABS: Hematocrit 40.5 % (42.0-52.0); Hemoglobin 13.2 g/dL (14.0-18.0); Immature Granulocyte Percent A 0.4 % (0-0.5); Lymphocytes Absolute Auto 1.26 K/mm3 (0.9-3.2); Mean Corpuscular HGB Conc 32.6 g/dl (32-36); Mean Corpuscular Hemoglobin 31.6 pg (26-34); Mean Corpuscular Volume 96.9 fl (80-100); Nucleated Red Blood Cells Absolute Auto 0.000 K/mm3 (0.0-0.012); Nucleated Red Blood Cells Perc 0.0 % (0.0-0.2); Platelet Count Result 265 k/mm3 (150-375); Red Blood Count 4.18 M/mm3 (4.6-6.20); White Blood Count 9.5 K/mm3 (4.5-10.0)
[2025-08-13 13:55] LABS: INR 1.2; Prothrombin Time 15.3 Seconds (11.1-14.7)
[2025-08-13 13:56] LABS: Partial Thromboplastin Time 30.0 Seconds (22.3-36.8)
[2025-08-13 13:59] LABS: Anion Gap 10 mmol/L (4-12); Blood Urea Nitrogen 17 mg/dL (9-20); Calcium 9.4 mg/dL (8.4-10.2); Carbon Dioxide 23 mmol/L (22-30); Chloride 105 mmol/L (98-107); Estimated Glomerular Filt Rate 45; Glucose 108 mg/dL (65-110); Potassium 4.2 mmol/L (3.4-5.0); Sodium 138 mmol/L (137-145)
[2025-08-13 14:57] LABS: MRSA (PCR) NOT DETECTED (NOT DETECTE)
== END 2025-08-13 11:59 | disposition home or self-care (01) ==
PROVIDERS: Anesthesiology; PCP Nurse Practitioner Family; Visit Provider Orthopaedic Surgery
DX: M17.11 Unilateral primary osteoarthritis, right knee (principal); N28.9 Disorder of kidney and ureter, unspecified; Z01.818 Encounter for other preprocedural examination
CPT/HCPCS: 36415; 80048; 80307; 85025; 85610; 85730; 87641

== ENCOUNTER 2025-09-10 03:25 | Day surgery (SDC) | payer OTHER, SELFPAY ==
[2025-08-13 12:24] VITALS: BP 150/70; PULSE 73; RESP 16; TEMP 36.4; O2SAT 100; BMI 30.4
--- NOTE | 2025-08-13 12:53 | PC.NURSE ---
[facility] has started construction of its new state of the art ER which will open Spring 2026. With this, we anticipate parking may be a challenge for some our surgical patients and families. Parking spaces are limited but are available for all Surgical, obstetrics, and ER patients sharing this lot. If you arrive and find you are having a hard time finding a parking space, please note that we understand the challenges, please drive around the hospital and park near Hospital Entrance 1. When you enter this entrance, you can ask a volunteer to direct or take you back to the surgical waiting area to check in. We appreciate everyone?s understanding of these expected challenges while we build for your future. Report to the Outpatient Waiting Room, entrance under the green pavilion located off [address], at time __10:00AM____ on date __09/10/25___. Planned Procedure Time: __12:00PM .? Time changes happen often and if your time is changed the preop area will call you the afternoon before. - You and your visitor will be asked to self-screen and do not enter if you have any COVID symptoms. Please call surgeon if you need to reschedule. - A mask is optional within the hospital at this time. Patients may have clear liquids (water, carbonated beverages, clear teas, apple juice) until 3 hours prior to surgery (9:00AM) with a maximum of 20 ounces. - No food from midnight until time of surgery and no smoking, or chewing tobacco (or any form of nicotine). No chewing gum, candy or mints. Take only the following medications with a SIP of water on the morning of surgery: __METOPROLOL DO NOT STOP ANY OF YOUR OTHER PRESCRIPTION MEDICATIONS PRIOR TO SURGERY EXCEPT THE FOLLOWING Medications to discontinue per physician __HOLD ALL VITAMINS/SUPPLEMENT7 DAYS PRE-OP PER DR BARRIOS Date to take last dose 09/02/25 Please no make-up, nail taiwanese, hairspray, perfume, deodorant, or body powder the day of surgery.? No jewelry (including any body piercings) or valuables the day of surgery, leave them at home.? Please take a shower or bath the night before, or the morning of, surgery with an antibacterial soap.? Wear comfortable, loose fitting clothing.? - Jewelry must be removed prior to entering the operating room.? Rings and piercings that are not removed may be cut off. - The hospital will not accept responsibility for valuables.? - Please leave all valuables, including medications, at home the day of surgery. If you are going home after surgery, a licensed belly dump driver must drive you home.? - NO public transportation without another adult if you receive anesthesia. - We recommend that an adult stay with you for 24 hours following discharge. - We also recommend that you do not drive, make important decision, drink alcoholic beverages, or take any drugs that were not prescribed by your health care provider for at least 24 hours after your discharge time. Follow any additional instructions given to you from your surgeon. Telephone instructions given to ____PATIENT & SISTER and asked if any additional questions and then verbalized understanding. Patient advised to call surgeon office or pre surgery nurse liaison [phone] if any additional questions.
[2025-09-10] VITALS (11 sets, daily range): BP systolic 131–190; BP diastolic 66–92; PULSE 14–89; RESP 12–23; TEMP 36.3–36.6; O2SAT 95–100
--- NOTE | ~2025-09-10 | XR_ITS ---
EXAMINATION: [id number] DATE: 09/10/2025 14:32 INDICATION: Postoperative evaluation following right total knee arthroplasty. TECHNIQUE: Anteroposterior and lateral views of the right knee were obtained. COMPARISON: None. FINDINGS: Right total knee arthroplasty without patellar resurfacing appears well seated and in near anatomic alignment. No fractures identified. Expected postoperative subcutaneous and intra-articular gas. IMPRESSION: 1. Right total knee arthroplasty, negative for postoperative purposes. Reviewed, dictated and finalized at location A. [facility]
--- NOTE | 2025-09-10 09:23 | P.OP_ITS ---
Procedure Note - Detailed Date of Procedure 09/10/25 Pre-op Diagnosis Right knee degenerative arthritis. Post-op Diagnosis Same Procedure Performed Calipered, kinematically aligned total knee replacement right knee. Surgeon Tod Watts MD Manufacturing Quality Technician Hallie Delaney PA-C Anesthesia General Findings According to the calipered kinematic alignment principles, the knee was balanced by the following verification checks incorporating 6 caliper measurements, using an insert goniometer to select the insert thickness, and adjusting the tibial resection following the kinematic alignment algorithm (see figure 160.10 published in [facility] chapter on kinematic alignment total knee arthroplasty.) The steps verified the femoral and tibial components were kinematically aligned coincident to the patient's pre arthritic joint lines, which closely restored the [place] tibial compartment forces and ligament laxities without ligament release. The Goozzyacta TIDAL PETROLEUMK SperiKA knee, designed specifically for kinematic alignment, fit optimally. Partial PCL release. The record of verification checks were documented and scanned into the chart. Description of Procedure General anesthesia was administered. A well-padded tourniquet was placed high on the thigh. The limb was prepped and draped in the usual sterile fashion. The limb was exsanguinated and the tourniquet inflated to 300 mmHgduring exposure and cementation. A longitudinal incision was created over the midline of the knee. Sharp dissection was taken through subcutaneous tissues. Electrocautery was used for hemostasis. A subvastus approach to the knee joint was performed. The ACL, anterior horns of the menisci, and fat pad were excised, and a subperiosteal dissection was carried along the posterior medial border of the tibia. Starting midway between the top of the notch in the anterior femoral cortex, I drilled a 9 mm diameter hole parallel to the anterior cortex to minimize flexion of the femoral component and promote patella tracking. I verified the existence of a 5-10 mm bone bridge between the posterior aspect of the hole and the anterior limit of the intercondylar notch. An intraosseous positioning vickie was inserted 10 cm into the femur perpendicular to the distal joint line and parallel to the anterior cortex. I used a distal femoral referencing guide that compensated 2 mm when the cartilage was worn on the distal medial femoral condyle, and 2 mm when the cartilage was worn on the distal lateral femoral condyle. The basis for setting the distal and posterior femoral resection guide is knowing that the varus and valgus grade II to IV Kel[place] osteoarthritic knees have negligible bone wear at 0? and 90? and that the mean full-thickness cartilage wear approximates 2 mm. I measured the thickness of distal femoral resections with a caliper to +/- 0.5 mm. The thickness of each resection was adjusted to match the thickness of the respective condyle of the femoral component within 0.5 mm of target after compensating for cartilage wear and kerf. When the distal resection was 1-2 mm too thin, a recut guide was used to adjust the cut. When the distal resection was too thick, a 1 or 2 mm thick washer was fixed to the back of the 4-in-1 chamfer block to candis a corrective gap between the femoral component and distal femur. I set posterior femoral referencing guide at 0? orientation to position the pin holes for the 4 in 1 chamfer block. The ronal wing measured the width of the distal femoral resection and selected the size of the 4 in 1 chamfer block and femoral component. The AP sizer confirmed the size. I measured the thickness of the posterior femoral resections with a caliper before making the anterior and chamfer cuts. I adjusted the thicknesses of each resection to match the thickness of the respective condyle of the femoral component within +/-0.5 mm after compensating for cartilage wear and curve. When a posterior resection femoral resection was 1-2 mm too thick or thin a corrective correction was made by shifting or rotating the 4 in 1 chamfer block as needed. The chamfer block was secured in the correct position with compression screws. The anterior and chamfer femoral resections were made. These caliper measurements and corrections verified that the femoral component was set coincident with the patient's pre-arthritic distal and posterior femoral joint lines. I removed all the medial and lateral femoral and tibial osteophytes to restore the pre arthritic length of the medial and lateral collateral ligaments. I warren AP lines along the major axis of the lateral tibial plateau in between the tibial spines which identified the flexion extension plane of the knee. A conventional extramedullary tibial resection guide was applied to the ankle. An ronal wing was placed medially in the saw slot. The varus valgus angle of the tibial resection guide was adjusted until the guide paralleled the proximal tibial articular surface after compensating for cartilage and bone wear. The slope of flexion extension angle of the tibial resection guide was adjusted until the ronal wing paralleled the slope of the medial tibia after compensating for wear. The AP axis of the tibial resection guide was adjusted parallel to the two lines. The proximal tibia was resected, partially releasing the insertion of the posterior cruciate ligament. The thickness of the medial and lateral lateral tibial condyle was measured at the base of the tibial spines. I visually verified the slope of the medial border of the resection was parallel to the patient's pre arthritic slope after compensating for cartilage and bone wear. I removed the remnants of the posterior horns of the menisci and posterior osteophytes and cauterized the inferior lateral genicular vessels. The Aquamantys bipolar device was also used to for additional hemostasis. When the knee had a preoperative flexion contracture of 20? or more I teased the capsule off the posterior femur with a curved 3 quarter-inch osteotome. I administered the posterior femoral periosteal injection by delivering 10 cc using a 20 gauge spinal needle at the most medial and 10 cc at the most lateral femoral spur surface which reduced the risk of injury to the posterior neurovascular structures. I followed 6 options in a decision tree to fine tune the varus valgus and posterior slope orientation of the tibial component to restore the patient's pre arthritic tibial joint line and limb alignment. First, I adjusted the varus- valgus orientation of the proximal tibia resection working in 1 degree to 2 degree increments until there was negligible medial and lateral lift off of the distal femoral and proximal tibial resection from the spacer block during a varus valgus laxity assessment in extension. I selected the largest anatomic shape trial tibial base plate that fit within the cortical boundary of the proximal tibial resection. The base plate was best fit parallel to the cortical boundary which set the Internal-external orientation of the anterior to posterior and medial to lateral positions. The best fit method set the AP axis of the tibial base plate and insert parallel to the flexion extension plane of the pre arthritic knee. I pinned the trial tibial base plate, prepared the cruciate slot, and fixed the base plate to the tibia with the cruciate stem. I inserted the trial femoral component. The knee was placed in full extension. Varus valgus laxity is of the knee with trial components were assessed. When asymmetric laxity was observed a 1-2 degree varus or valgus recut guide was used to fine tune the tibial resection until the laxity was 1 degree or less in full extension like the [place] knee. The following steps determined the optimal insert thickness within +/-1 mm. First I inserted an insert goniometer that matched the thickness of the spacer block. I reduced the patella and then with the knee in maximum extension, I verified the knee hyperextended a few degrees and had negligible varus valgus laxity, like the pre arthritic knee. Next, I measured the external tibial orientation which was the angle the insert goniometer intersected the sagittal line on the medial condyle of the femoral trial component. Then with the knee in 15-30 degrees flexion I verified a 3-4 mm gap in the lateral compartment and no gap in the medial compartment during a 2nd varus valgus laxity test. Next, I placed the knee in 90? of flexion and the foot resting on the operating table and measured the internal tibial orientation. I repeated the steps until I identified the insert thickness that provided the highest external tibia orientation in extension and the highest internal tibial orientation at 90? flexion without anterior lift-off of the insert from the tibial base plate. The insert with this thickness was implanted. I applied a posterior drawer test with the tibia distracted by gravity and verified no posterior subluxation of the tibia relative to the femur. The thickness of the [place] patella was measured with a caliper. The lateral patellar facet was resected using the oscillating saw. The patella remained centered on the trochlea and tracked well throughout the entire arc of flexion and extension. I used pulse lavage to clean the bony surfaces of debris and dried bone. I cemented the tibial, femoral, and patellar components using 1 bag of methylmethacrylate with Gentamycin, then rechecked the stability at full extension, 15-30 degrees, and 90? flexion and verified shinto of the entire arc of motion of the knee. The circulating nurse confirmed the sponge and needle counts were correct. I used pulse lavage to rinse the joint and wound. The extensor mechanism was closed with interrupted #1 Vicryl suture and #1 running Stratafix suture. The subcutaneous layer was closed with interrupted #1 Vicryl suture followed by 2-0 Stratafix and 3-0 Stratafix. Steri-Strips placed on the skin. Silver impregnated occlusive dressing applied to the wound. A light gauze wrap and Shawn bandage were placed. The patient was transferred to the recovery room in stable condition. There were no complications. Physician metal forger's assistant, Hallie Delaney PA-C, required for surgery; including patient positioning, draping, tissue retraction, maintaining instrument position, cement removal, wound closure, and dressing placement. Implants Medacta GMK spheriKA Femoral component SpheriKA size 5+, vitamin-E flex insert, thickness 13 mm Estimated Blood Loss 50 Urine Output 300 Drains No Pathology None sent Complications No immediate complications Condition Stable Disposition PACU [facility] Billing Surgery - Charge Forward: Surgery Billing
[2025-09-10 10:34] LABS: INR 1.1; Prothrombin Time 13.8 Seconds (11.1-14.7)
[2025-09-10] MEDS: TRANEXAMIC ACID 1,000MG/ISO100 1,000 MG/100 ML BAG 200 MG IVPB (10:35)
[2025-09-10] MEDS: ACETAMINOPHEN 500 MG TABLET 1000 MG PO (10:35)
--- NOTE | 2025-09-10 11:35 | WPDHPUPDATE1 ---
History and Physical Update Update Date/Time: 09/10/25 11:35 History and Physical has been reviewed, including an updated exam of the patient. There are NO changes in the patient's condition. Risks, benefits, and alternatives have been discussed and questions answered. Patient agrees to proceed with procedure.
--- NOTE | 2025-09-10 11:54 | P.PNAN_ITS ---
Anes - Initial Pre Proc Eval Procedure: Operation Date: 09/10/25 12:00 Proposed Procedures p Right Total Knee Arthroplasty - Tod Watts MD Date/Time: 09/10/25 11:54 Surgeon: Tod Watts MD Pre Op Diagnosis: primary OA right knee Patient Data Age: 65 Gender: M Height: 1.78 m Weight: 93 kg Last Vital Signs Temp 97.4 F L 09/10/25 10:35 Pulse 81 09/10/25 10:35 Resp 16 09/10/25 10:35 BP 190/91 H 09/10/25 10:35 Pulse Ox 97 09/10/25 10:35 O2 Del Method Room Air 09/10/25 10:35 Allergies Allergy/AdvReac Type Severity Reaction Status Date / Time No Known Allergies Allergy Verified 09/10/25 10:55 Home Medications ?Medication ?Instructions ?Recorded ?Confirmed ?Type pantoprazole 40 mg tablet,delayed 40 mg PO .daily #30 tabs 05/24/24 09/10/25 Rx release atorvastatin 10 mg tablet 10 mg PO DAILY #90 tabs 08/0 10/1409/10/25 Rx lisinopril 10 mg tablet 10 mg PO DAILY #90 tabs 08/0 10/1409/10/25 Rx fenofibrate micronized 200 mg 200 mg PO DAILY #90 caps 07/03/25 09/10/25 Rx capsule metoprolol succinate 100 mg See Rx Instructions .Route 07/03/25 09/10/25 Rx tablet,extended release 24 hr .COMPLEX #90 tabs acetaminophen 500 mg tablet 1,000 mg PO Q6H PRN pain 1 10/13/24 08/13/25 History (Acetaminophen Extra Strength) multivitamin (Daily Multi-Vitamin 1 tablet PO DAILY 09/10/25 History tablet) aspirin 81 mg tablet,delayed 81 mg PO BID 14 days #28 tabs 09/10/25 Rx release meloxicam 15 mg tablet 15 mg PO DAILY #30 tabs 08/21 11/14 Rx oxycodone-acetaminophen 5 mg-325 1 - 2 tablet PO Q4-6H PRN pain #30 09/10/25 Rx mg tablet tabs prednisone 5 mg tablet 5 mg PO DAILY 3 weeks #21 ta bs 09/10/25 Rx Laboratory Tests 09/10/25 10:15 PT 13.8 Seconds (11.1-14.7) INR 1.1 Blood Type O Positive Antibody Screen Negative Patient hx anesthesia problems: none Family hx anesthesia problems: none Results Review: All pre-operative results and documents have been reviewed as part of the pre- operative evaluation. [facility] Past Medical History Medical History Prediabetes Degenerative joint disease of right knee Alopecia areata Carpal tunnel syndrome of left wrist Immunization counseling Benign essential hypertension Daily consumption of alcohol Peptic ulcer Chronic obstructive pulmonary disease Erectile dysfunction Alcohol induced acute pancreatitis Hyperlipidemia Benign essential hypertension Surgical History Surgical History History of colonoscopy with polypectomy (06/2013) Benign polyp, internal hemorrhoids, diverticulosis. Family History Family History Mother Patient's mother is in good health Father Family history of respiratory disorder, Onset Age: 67 Patient's father is , Onset Age: 67 Social History Social History Social History: Surrogate medical decision maker: Yaakov Leblanc, son. Code status: Full code. Smoking packs per day: 1 Smoking cigarettes per day: 20.0 Years smoked: 40 Smoking pack-years: 40.00 Smoking status: Former smoker Tobacco type: cigarettes Second hand tobacco smoke exposure: Yes Smoking end date: 09/20/15 Alcohol intake: current Drinks per week: 7 Alcohol use details: Drinks a couple of cocktails most days of the week. Substance use: never Substance use type: marijuana Other substance usage details: once a month Lack of Transportation: No Lack of Food: Never True Current Housing: I Have Housing Concerned About Future Housing: YES Difficulty Paying Gas/Electric Bills: No Difficulty Paying for Meds: No Currently Unemployed: No Education: Trade/Vocational Certificate Difficulty w/ Childcare or Family Care: No Living arrangements: alone Occupation/Education: retired Spiritual care concerns: No Agree to blood products: Yes Anes - Eval Final PreProcedure Day of Procedure 09/10/25 11:54 Patient weight: overweight Lungs: normal air movement Airway: Mallampati scale class II Neurological: alert and oriented Last oral intake: >/= 8 hours ASA classification: III Emergent: no Anesthetic plan: proceed Anesthesia type and monitoring: general ETT and standard monitoring Results Review: All pre-operative results and documents have been reviewed as part of the pre- operative evaluation. CKD, COPD, OA, prev smoker, EKG reviewed, pt w good ET, no cp or sob w short walking distances. Informed Consent: The patient's anesthetic plan and its attendant risks and benefits were discussed with the patient/family/POA. Questions were solicited and answers provided to the satisfaction of the patient/family/POA.
[2025-09-10] MEDS: ceFAZolin 2 GM in SODIUM CHLORIDE 0.9% IV 50 ML 100 ML IVPB ×2 (12:10→20:50)
[2025-09-10] MEDS: SODIUM CHLORIDE 0.9% IV 37.7 ML, MORPHINE SULFATE INJ (*CRX) 2 MG, ROPivacaine HCL 1% 2... INFILTRATE (12:35)
[2025-09-10] MEDS: TRANEXAMIC ACID 1,000 MG/10 ML AMPUL 1000 MG IV PUSH (13:54)
[2025-09-10] MEDS: LACTATED RINGERS 1,000 ML 30 ML IV CONT (14:24)
[2025-09-10] MEDS: fentaNYL CITRATE INJ (*CRX) 100 MCG/2 ML VIAL 25 MCG IV PUSH (15:00)
[2025-09-10] MEDS: ONDANSETRON INJ 4 MG/2 ML VIAL IV PUSH (15:00)
--- NOTE | 2025-09-10 16:04 | ADMGEN ---
This patient, Yaakov Leblanc Jr., was admitted to Medical Room 346-01. Patient/family oriented to hospital policies and general routines including ID bracelet, bed and alarms, visiting hours, pain management, procedures, bathroom and other care routines, personal items, smoking policy, room service/diet, and visiting hours. Information on how to activate the Rapid Response Team has been discussed. Patient/Family are encouraged to report perceived risks to care and to ask questions if they do not understand what they are told or what they should do.
[2025-09-10] MEDS: MELOXICAM 7.5 MG TABLET PO (16:20)
[2025-09-10] MEDS: oxyCODONE/ACETAMINOPHEN (*CRX) 5-325 MG TABLET 1 TABLET PO ×2 (16:21→20:48)
[2025-09-10] MEDS: ACETAMINOPHEN 325 MG TABLET 650 MG PO (17:49)
[2025-09-10] MEDS: SENNA/DOCUSATE SODIUM TABLET 2 TAB PO (17:49)
[2025-09-10] MEDS: ASPIRIN 81 MG ENTERIC TABLET PO (20:48)
[2025-09-10] MEDS: FAMOTIDINE 20 MG TABLET PO (20:48)
[2025-09-11] MEDS: ACETAMINOPHEN 325 MG TABLET 650 MG PO ×2 (00:58→05:00)
[2025-09-11 01:20] VITALS: BP 162/87; PULSE 66; RESP 18; TEMP 36.7; O2SAT 98
[2025-09-11] MEDS: oxyCODONE/ACETAMINOPHEN (*CRX) 5-325 MG TABLET 1 TABLET PO ×2 (02:09→07:27)
[2025-09-11] MEDS: ceFAZolin 2 GM in SODIUM CHLORIDE 0.9% IV 50 ML 100 ML IVPB (05:00)
[2025-09-11 05:12] LABS: Hematocrit 36.5 % (42.0-52.0); Hemoglobin 12.0 g/dL (14.0-18.0); Immature Granulocyte Percent A 0.3 % (0-0.5); Lymphocytes Absolute Auto 0.83 K/mm3 (0.9-3.2); Mean Corpuscular HGB Conc 32.9 g/dl (32-36); Mean Corpuscular Hemoglobin 31.0 pg (26-34); Mean Corpuscular Volume 94.3 fl (80-100); Nucleated Red Blood Cells Absolute Auto 0.000 K/mm3 (0.0-0.012); Nucleated Red Blood Cells Perc 0.0 % (0.0-0.2); Platelet Count Result 225 k/mm3 (150-375); Red Blood Count 3.87 M/mm3 (4.6-6.20); White Blood Count 14.5 K/mm3 (4.5-10.0)
[2025-09-11 05:32] LABS: Anion Gap 10 mmol/L (4-12); Blood Urea Nitrogen 27 mg/dL (9-20); Calcium 8.8 mg/dL (8.4-10.2); Carbon Dioxide 19 mmol/L (22-30); Chloride 104 mmol/L (98-107); Estimated CRCL calculation 45 ml/min; Estimated Glomerular Filt Rate 46; Glucose 123 mg/dL (65-110); Potassium 5.5 mmol/L (3.4-5.0); Sodium 133 mmol/L (137-145)
[2025-09-11 08:07] VITALS: PULSE 63
[2025-09-11] MEDS: MELOXICAM 7.5 MG TABLET PO (08:07)
[2025-09-11] MEDS: FAMOTIDINE 20 MG TABLET PO (08:07)
[2025-09-11] MEDS: METOPROLOL SUCCINATE EXT REL 100 MG TABCR BY MOUTH (08:07)
[2025-09-11] MEDS: FENOFIBRATE 145 MG TABLET PO (08:07)
[2025-09-11] MEDS: PANTOPRAZOLE 40 MG TABLET PO (08:08)
[2025-09-11] MEDS: ASPIRIN 81 MG ENTERIC TABLET PO (08:08)
[2025-09-11] MEDS: ATORVASTATIN 10 MG TABLET PO (08:08)
[2025-09-11] MEDS: SENNA/DOCUSATE SODIUM TABLET 2 TAB PO (08:08)
[2025-09-11 08:17] VITALS: BP 151/73; PULSE 63; RESP 16; TEMP 36.2; O2SAT 99
--- NOTE | 2025-09-11 10:30 | PM.PNORT ---
Progress Note: A&P Assessment and Plan (1) Status post total right knee replacement: Code(s): Z96.651 - Presence of right artificial knee joint Status: Acute Assessment and Plan: Postop day 1: total knee arthroplasty. Patient tolerated procedure well. No complications. Pain manageable with pain medication. No numbness or tingling. We had a lengthy discussion regarding postoperative wound care, limitations, expectations, and exercises. Patient shows good understanding. He has had initial physical therapy and is tolerating it well. Patient has followup appointment with Dr. Watts in 3 weeks. Subjective Subjective Date/Time Seen: 09/11/25 10:30 Interval history: Patient resting comfortably. No distal numbness or tingling. No other complaints. Review of Systems Review of Systems: All systems reviewed & are unremarkable except as noted in HPI and below Exam Narrative: 65-year-old male. Resting comfortably in chair. Alert and oriented x3. No acute distress. Wearing compression socks bilaterally. Dressing dry and intact without drainage. Mild swelling. No ecchymosis. No erythema. No hematoma. Range of motion limited due to pain. Calf nontender. Neurologic status intact. No varicosities. Distal pulses palpable. Objective Data Vital Signs Vital Signs: Vital Signs - 24 hr 09/10/25 10:35 09/10/25 14:24 09/10/25 14:30 Temperature 97.4 F L 97.8 F Pulse Rate 81 89 68 Respiratory Rate 16 23 H 16 Blood Pressure 190/91 H 161/78 H 157/78 H Pulse Oximetry 97 99 99 Oxygen Delivery Room Air Simple Face Mask Simple Face Mask Oxygen Flow Rate 8 8 09/10/25 14:45 09/10/25 15:00 09/10/25 15:15 Temperature Pulse Rate 71 66 60 Respiratory Rate 18 21 H 19 Blood Pressure 141/72 H 131/66 148/84 H Pulse Oximetry 97 95 97 Oxygen Delivery Room Air Room Air Room Air Oxygen Flow Rate 09/10/25 15:50 09/10/25 16:05 09/10/25 16:35 Temperature 97.9 F 97.5 F L 97.5 F L Pulse Rate 57 L 14 L 60 Respiratory Rate 12 14 14 Blood Pressure 165/91 H 153/79 H 166/90 H Pulse Oximetry 97 96 100 Oxygen Delivery Oxygen Flow Rate 09/10/25 17:52 09/10/25 21:20 12/23/25 01:20 Temperature 97.4 F L 97.7 F 98.0 F Pulse Rate 66 58 L 66 Respiratory Rate 14 18 18 Blood Pressure 186/92 H 159/79 H 162/87 H Pulse Oximetry 100 98 98 Oxygen Delivery Oxygen Flow Rate 09/11/25 08:07 09/11/25 08:10 09/11/25 08:17 Temperature 97.1 F L Pulse Rate 63 63 Respiratory Rate 16 Blood Pressure 151/73 H Pulse Oximetry 99 Oxygen Delivery Room Air Oxygen Flow Rate 09/11/25 08:59 Temperature Pulse Rate Respiratory Rate Blood Pressure Pulse Oximetry Oxygen Delivery Room Air Oxygen Flow Rate Intake/Output Intake/Output: Intake & Output 09/08/25 09/09/25 09/10/25 09/11/25 23:59 23:59 23:59 23:59 Intake Total 640 290 Output Total 300 300 Balance 340 -10 Meds/Results Medications: Active Medications Generic Name Dose Route Start Last Admin Trade Name Freq PRN Reason Stop Dose Admin Acetaminophen 650 mg 09/10/25 18:00 09/11/25 05:00 Acetaminophen 325 Mg Tablet PO 650 mg Q6H KUSH Administration Aspirin 81 mg 09/10/25 21:00 09/11/25 08:08 Aspirin 81 Mg Enteric Tablet PO 81 mg Q12HR KUSH Administration Atorvastatin Calcium 10 mg 09/11/25 09:00 09/11/25 08:08 Atorvastatin 10 Mg Tablet PO 10 mg DAILY KUSH Administration Cyclobenzaprine HCl 5 mg 09/10/25 15:35 Cyclobenzaprine Hcl 5 Mg Tablet PO Q8H PRN Spasms Diphenhydramine HCl 25 mg 09/10/25 15:35 Diphenhydramine Hcl Inj 50 Mg/Ml Vial IV PUSH Q6H PRN Itching Famotidine 20 mg 09/10/25 21:00 09/11/25 08:07 Famotidine 20 Mg Tablet PO 20 mg Q12HR KUSH Administration Fenofibrate 145 mg 09/11/25 09:00 09/11/25 08:07 Fenofibrate 145 Mg Tablet PO 145 mg DAILY KUSH Administration Hydromorphone HCl 1 mg 09/10/25 15:35 Hydromorphone Hcl Inj (*Crx) 1 Mg/Ml Syr IV PUSH Q2H PRN Breakthrough Pain Rated 7-10 or NPO Hydromorphone HCl 0.5 mg 09/10/25 15:35 Hydromorphone Hcl Inj (*Crx) 1 Mg/Ml Syr IV PUSH Q2H PRN Breakthrough Pain Rated 4-6 or NPO Cefazolin Sodium 2 gm/ Sodium 50 mls @ 100 mls/hr 09/10/25 20:00 09/11/25 05:30 Chloride IVPB 09/11/25 12:29 Infused Q8H KUSH Infusion Lisinopril 10 mg 09/11/25 09:00 09/11/25 08:08 Lisinopril 10 Mg Tablet PO 10 mg DAILY KUSH Administration Meloxicam 7.5 mg 09/10/25 17:00 09/11/25 08:07 Meloxicam 7.5 Mg Tablet PO 7.5 mg BID KUSH Administration Metoprolol Succinate 100 mg 09/11/25 09:00 09/11/25 08:07 Metoprolol Succinate Ext Rel 100 Mg Tabcr BY MOUTH 100 mg DAILY KUSH Administration Naloxone HCl 0.1 mg 09/10/25 15:35 Naloxone Hcl 0.4 Mg/Ml Vial IV PUSH Q2M PRN Opiate Reversal Ondansetron HCl 4 mg 09/10/25 15:35 Ondansetron Inj 4 Mg/2 Ml Vial IV PUSH Q4H PRN Nausea And Vomiting Oxycodone/Acetaminophen 1 tablet 09/10/25 15:35 09/11/25 07:27 Oxycodone/Acetaminophen (*Crx) 5-325 Mg Tablet PO 1 tablet Q4H PRN Administration Pain Rated 4-6 Oxycodone/Acetaminophen 1 tab 09/10/25 15:35 Oxycodone/Acetaminophen (*Crx) 10-325 Mg Tablet PO Q6H PRN Pain Rated 7-10 Pantoprazole Sodium 40 mg 09/11/25 09:00 09/11/25 08:08 Pantoprazole 40 Mg Tablet PO 40 mg DAILY KUSH Administration Polyethylene Glycol 17 gm 09/11/25 09:00 09/11/25 08:07 Polyethylene Glycol 3350 17 Gm Powd.Pack PO 17 gm QAM KUSH Administration Prednisone 5 mg 09/10/25 17:00 09/10/25 17:49 Prednisone 5 Mg Tablet PO 5 mg DAILY@1700 KUSH Administration Senna/Docusate Sodium 2 tab 09/10/25 17:00 09/11/25 08:08 Senna/Docusate Sodium Tablet PO 2 tab BID KUSH Administration Tramadol HCl 50 mg 09/10/25 15:35 Tramadol Hcl (*Crx) 50 Mg Tablet PO Q4H PRN Pain Rated 1-3 Radiology Results: ITS Impressions Knee X-Ray 09/10/25 14:36 IMPRESSION: 1. Right total knee arthroplasty, negative for postoperative purposes. Labs Labs: Laboratory Results - last 24 hr 09/10/25 09/11/25 10:15 04:49 WBC 14.5 H RBC 3.87 L Hgb 12.0 L Hct 36.5 L MCV 94.3 MCH 31.0 MCHC 32.9 RDW 12.7 Plt Count 225 MPV 10.1 Immature Gran % (Auto) 0.3 Neut % (Auto) 89.2 H Lymph % (Auto) 5.7 L Sebastian % (Auto) 4.7 Eos % (Auto) 0.0 Baso % (Auto) 0.1 L Lymph # (Auto) 0.83 L Sebastian # (Auto) 0.7 H Eos # (Auto) 0.0 Baso # (Auto) 0.0 Abs Immat Gran (auto) 0.05 H Absolute Neuts (auto) 12.9 H Absolute Nucleated RBC 0.000 Nucleated RBC % 0.0 PT 13.8 INR 1.1 Sodium 133 L Potassium 5.5 H Chloride 104 Carbon Dioxide 19 L Anion Gap 10 BUN 27 H D Creatinine 1.54 H Estim Creat Clear Calc 45 Estimated GFR 46 L Glucose 123 H Calcium 8.8 Blood Type O Positive Antibody Screen Negative
== END 2025-09-11 10:55 | disposition home or self-care (01) ==
LOC: ANHSURGERY 09:45 → ANH3MED 15:40
PROVIDERS: Anesthesiology; Physician Assistant Surgical; PCP Nurse Practitioner Family; Visit Provider Orthopaedic Surgery
PROC: (CPT 27447; principal; 2025-09-10 12:00)
DX: M17.11 Unilateral primary osteoarthritis, right knee (principal); Z87.891 Personal history of nicotine dependence
CPT/HCPCS: 27447; 36415; 73560; 80048; 85025; 85610; 86850; 86900; 86901; 97110; 97161; 97165; J0690; A9270; C1713; C1776; J0166; J1100; J1885; J2003; J2250; J2270; J2405; J2704; J2795; J3010; J3290; J7120; J7512